=== PATIENT | female | born 1975 | race Hispanic/Latino ===

== ENCOUNTER 2017-08-07 12:05 | Emergency (ER) | payer OTHER ==
[2017-08-07] MEDS ORDERED: Ibuprofen 800 MG TAB ONE (14:27)
[2017-08-07] MEDS ORDERED: HYDROcodone/Acetaminophen 7.5/325 mg Tablet ONE (14:34)
--- NOTE | 2017-08-07 15:05 | RAD ---
FOUR VIEWS RIGHT KNEE: DATE: 08/07/17. HISTORY: Chronic knee pain, acute twisting injury, pain. FINDINGS: There is mild medial compartment narrowing with associated medial osteophyte formation. No knee floridalma nt effusion, displaced fracture, or evidence of dislocation. IMPRESSION: No acute findings. POS: [facility]
== END 2017-08-07 16:07 | disposition home or self-care (01) ==
LOC: ERS 12:05
DX: S83.91XA Sprain of unspecified site of right knee, initial encounter (principal); F17.210 Nicotine dependence, cigarettes, uncomplicated; X50.1XXA Overexertion from prolonged static or awkward postures, initial encounter

== ENCOUNTER 2017-11-18 10:27 | Emergency (ER) | payer OTHER ==
--- NOTE | 2017-11-18 11:39 | RAD ---
FOUR VIEWS RIGHT KNEE: COMPARISON: 08/07/17. HISTORY: Right knee pain. FINDINGS: Four views of the right knee show no evidence of acute fracture or dislocation. Small osteophytes ar e seen in the medial femorotibial compartment consistent with osteoarthritis. No knee effusion is se en. IMPRESSION: Mild right knee osteoarthritis with acute osseous abnormality. POS: [facility]
== END 2017-11-18 13:28 | disposition home or self-care (01) ==
LOC: ERS 10:27
DX: M17.11 Unilateral primary osteoarthritis, right knee (principal); F17.210 Nicotine dependence, cigarettes, uncomplicated

== ENCOUNTER 2018-09-15 12:55 | Emergency (ER) | payer OTHER, SELFPAY | END 2018-09-15 13:47 | disposition home or self-care (01) | LOC: SCSER 12:55 | DX: K04.7 Periapical abscess without sinus (principal); M27.8 Other specified diseases of jaws; F17.210 Nicotine dependence, cigarettes, uncomplicated | CPT/HCPCS: 99283 ==

== ENCOUNTER 2018-10-31 12:24 | Emergency (ER) | payer SELFPAY ==
[2018-10-31] MEDS ORDERED: Lidocaine 1% 20 ML MDV ONE (12:45)
== END 2018-10-31 13:17 | disposition home or self-care (01) ==
LOC: SCSER 12:24
DX: M25.461 Effusion, right knee (principal); F17.210 Nicotine dependence, cigarettes, uncomplicated
CPT/HCPCS: 20610; J2001

== ENCOUNTER 2019-02-05 10:18 | Emergency (ER) | payer SELFPAY | END 2019-02-05 11:03 | disposition home or self-care (01) | LOC: SCSER 10:18 | DX: M25.561 Pain in right knee (principal); G89.29 Other chronic pain; Z71.6 Tobacco abuse counseling; F17.210 Nicotine dependence, cigarettes, uncomplicated | CPT/HCPCS: 99406 ==

== ENCOUNTER 2019-04-30 09:44 | Emergency (ER) | payer SELFPAY ==
--- NOTE | 2019-04-30 11:10 | RAD ---
XR Wrist 3 Lt View STANDARD History: Trauma Comparison: None. Findings: No acute fracture or malalignment. Mild degenerative disease of the thumb metacarpal phalan geal joint. Mild thenar soft tissue swelling. Impression: No acute fracture or malalignment.
--- NOTE | 2019-04-30 11:13 | RAD ---
XR Femur Rt 2 View STANDARD History: Trauma. Pain. Fall. Comparison: None. Findings: No acute fracture or malalignment. Small acetabular osteophyte formation. Small medial knee compartment osteophyte formation. Impression: No acute fracture of the femur.
--- NOTE | 2019-04-30 11:18 | RAD ---
Exam: Lumbar spine 3 views HISTORY: Osteoarthritis. FINDINGS: 5 lumbar type vertebral bodies. Vertebral body height is maintained. No fracture. Disc spac e heights are preserved. No spondylolisthesis or spondylolysis. IMPRESSION: Unremarkable lumbar spine 3 views
== END 2019-04-30 11:30 | disposition home or self-care (01) ==
LOC: ERS 09:44
DX: S63.502A Unspecified sprain of left wrist, initial encounter (principal); S83.91XA Sprain of unspecified site of right knee, initial encounter; F17.210 Nicotine dependence, cigarettes, uncomplicated; W18.42XA Slipping, tripping and stumbling without falling due to stepping into hole or opening, initial encounter
CPT/HCPCS: 72100

== ENCOUNTER 2020-10-26 13:48 | Emergency (ER) | payer SELFPAY ==
[2020-10-26] MEDS ORDERED: Acetaminophen 500 MG TAB ONE (14:23)
[2020-10-26 14:34] LABS: #Basophils 0.1 thou/uL (0.0-0.2); #Lymphocytes 2.1 thou/uL (1.20-3.40); #Monocytes 0.6 thou/uL (0.11-0.59); #Neutrophils 2.8 thou/uL (1.40-6.50); %Eosinophils 0.2 % (0.0-10.0); %Lymphocytes 37.9 % (21.0-51.0); %Monocytes 11.1 % (0.0-10.0); %Neutrophils 49.8 % (42.0-75.0); Hemoglobin 13.7 g/dL (12.0-16.0); Mean Corpuscular HGB CONC 32.3 g/dL (32.0-36.0); Mean Corpuscular Hemoglobin 27.3 pg (27.0-31.0); Mean Corpuscular Volume 84.5 fL (78.0-98.0); Mean Platelet Volume 7.3 fL (7.4-10.4); Platelet Count 236 thou/uL (130-400); Red Blood Cell (RBC) Count 5.01 mill/uL (4.20-5.40); White Blood Cell (WBC) Count 5.5 thou/uL (4.8-10.8)
[2020-10-26 14:59] LABS: ALT (SGPT) 43 U/L (8-55); AST (SGOT) 45 U/L (5-34); Albumin 4.3 g/dL (3.5-5.0); Alkaline Phosphatase 106 U/L (40-110); Anion Gap 16 mmol/L (10-20); BUN (Urea Nitrogen) 7 mg/dL (7.0-18.7); Calc. Creatinine Clearance 0 mL/min (70-130); Calcium 8.8 mg/dL (7.8-10.44); Carbon Dioxide 25 mmol/L (22-29); Chloride 97 mmol/L (98-107); Globulin 3.6 g/dL (2.4-3.5); Glucose 101 mg/dL (70-105); Potassium 3.6 mmol/L (3.5-5.1); Protein, Total 7.9 g/dL (6.0-8.3); Sodium 134 mmol/L (136-145)
[2020-10-26 15:09] LABS: Bilirubin Negative (Negative); Blood, Urine Negative (Negative); Clarity Clear (Clear); Glucose, Urine (Dipstick) Normal (Negative); Ketone, Urine Trace mg/dL (Negative); Leukocyte Negative Leu/uL (Negative); Nitrite Negative (Negative); Protein, Urine (Dipstick) 10 mg/dL (Neg-Trace); Specific Gravity, Urine 1.016 (1.002-1.036); Urobilinogen 3 mg/dL (Less than 2)
[2020-10-26 15:11] LABS: Pregnancy Test - Urine (BHCG) Negative (Negative); Pregu Control Background? CLEAR/WHITE (CLR/WHITE); Pregu Control Bar Appear? YES (CONTROL BAR); Specific Gravity 1.016 (1.002-1.036)
[2020-10-26 15:47] LABS: Bilirubin, Total 0.6 mg/dL (0.2-1.2)
[2020-10-26] MEDS ORDERED: Ondansetron ODT 8 MG TAB ONE (18:16)
--- NOTE | 2020-10-26 18:17 | RAD ---
PORTABLE CHEST: Date: 10-26-2020 PROVIDED CLINICAL HISTORY: Cough FINDINGS: Comparison 06-10-14. Cardiac and mediastinal silhouette is within normal limits. No focal consolidation, pleural fluid, or pneumothorax apparent. IMPRESSION: No evidence for an acute cardiopulmonary process. POS: [facility]
== END 2020-10-26 18:41 | disposition home or self-care (01) ==
LOC: ERS 13:48
DX: R11.2 Nausea with vomiting, unspecified (principal); F17.210 Nicotine dependence, cigarettes, uncomplicated
CPT/HCPCS: 36415; 71045; 80053; 81003; 81025; 83690; 85025; Q0162

== ENCOUNTER 2021-02-10 12:31 | Emergency (ER) | payer OTHER | END 2021-02-10 14:25 | disposition home or self-care (01) | LOC: ERS 12:31 | DX: J32.9 Chronic sinusitis, unspecified (principal); M19.90 Unspecified osteoarthritis, unspecified site; F17.210 Nicotine dependence, cigarettes, uncomplicated | CPT/HCPCS: 99283 ==